=== PATIENT | female | born 1980 | race Caucasian/White ===

== ENCOUNTER 2016-08-27 21:30 | Emergency (ER) | payer SELFPAY ==
--- NOTE | 2016-08-28 | ED ORDER SUMMARY ---
..... Patient: SUBHA DURAN OrderSheet [facility] VisitID: [id number] [address] [place] [address] 36y, F Registration Date/Time: 08/27/2016 ORDER SHEET Weight: 70.3 kg (stated) Allergies: No Known Drug Allergy GENERAL ORDERS: Visual Acuity (23:57 08/27/2016 EKoroleva P.A.-C) (0:13 RCollier R.N.) MEDICATION ORDERS: Benadryl PO 50 mg (NOW) (23:57 08/27/2016 EKoroleva P.A.-C) (Ack 0:04 RCollier R.N.) (0:14 RCollier R.N.) Motrin PO 800 mg (NOW) (23:57 08/27/2016 EKoroleva P.A.-C) (Ack 0:04 RCollier R.N.) (0:14 RCollier R.N.) IV FLUIDS: ORDER SHEET NOTES: [Electronically signed by Carli Vargas P.A.-C (00:33 08/28/2016)] [Electronically signed by Cassie Bangura R.N. (04:48 08/28/2016)] [Electronically locked/signed by Cassie Bangura R.N. (04:48 08/28/2016)]
--- NOTE | 2016-08-28 | ED NURSING NOTES ---
Clinical Report - Nurses [facility] [address] [place] [address] 08/27/2016 21:31 [id number] TRI[facility] Triage time 23:45. Acuity: LEVEL 4. Chief Complaint: REDNESS and PAIN TO RIGHT EYE. REDNESS and PAIN TO LEFT EYE. Alert. No acute distress. --23:48 Cassie Bangura R.N. 23:45 08/27/16. BP: 139/99. HR: 108. RR: 17. O2 saturation: 100%. Temp: 97.6 F (oral). Walker-Gonzalez pain scale: 4/10. --23:48 Cassie Bangura R.N. VISUAL ACUITY: Visual acuity performed: left eye 20/70; right eye 20/70; both eyes 20/70 (pt uncooperative during exam, unwilling to cover eye completely). Patient does not wear corrective lenses. --00:16 Cassie Bangura R.N. Weight: 70.3 kg stated. Height/Length: 66 inches Per Patient. BMI: 25. --23:48 Cassie Bangura R.N. Medications None. --23:45 Cassie Bangura R.N. Allergies No Known Drug Allergy. --23:46 Cassie Bangura R.N. History Arrived by private vehicle. Historian: patient. Primary physician (None). Onset. (about 2 days ago). She did not sustain an injury. PAST MEDICAL HX: Immunizations: up-to-date. Last normal menstrual period was 1 week ago. SOCIAL HX: Heavy tobacco smoker (cigarette)- less than 1 pack per day. No alcohol use or drug use. --23:48 Cassie Bangura R.N. PROBLEMS: Avitia's Palsy. --23:46 Cassie Bangura R.N. ADDITIONAL SURGERIES: Breast reduction. Tonsillectomy. --23:46 Cassie Bangura R.N. Interventions ID band on patient. To treatment room. --23:48 Cassie Bangura R.N. PHYSICAL ASSESSMENT Ambulatory to room. GENERAL / NEURO / PSYCH: Alert. Appears in no acute distress. SKIN: Skin is warm and dry. --23:48 Cassie Bangura R.N. NURSING PROGRESS NOTES Head of bed elevated. Two patient identifiers checked. Call light placed in reach. Side rails up x 1. Bed placed in lowest position. Brakes of bed on. --23:49 Cassie Bangura R.N. Patient ready for evaluation- chart flagged. --23:49 Cassie Bangura R.N. 00:08/28/2016 Benadryl (DiphenhydrAMINE HCl) PO Capsules 50 mg given. Allergies verified, confirmed 5 rights and sedative warning given to the patient. --00:14 Cassie Bangura R.N. 00:08/28/2016 Motrin PO Tablets 800 mg given. Allergies verified and confirmed 5 rights. --00:14 Cassie Bangura R.N. DISPOSITION / DISCHARGE Condition at departure: stable. No learning barriers present. Discharge instructions provided and reviewed with the patient. Reviewed medication(s) side effects, precautions, dosing and course information. Prescription(s) given to the patient. Patient verbalized understanding. Written instructions provided in Frisian. The patient was discharged home and accompanied by tool design engineer. She left the Emergency Department ambulatory and via private vehicle. Draw Bench Operator driving. --00:15 Cassie Bangura R.N. 00:14 08/28/16. BP: deferred. HR: deferred. RR: deferred. O2 saturation: deferred. Temp: deferred. Pain level now deferred. --00:15 Cassie Bangura R.N. Locked/Released at 08/28/2016 4:48 by Cassie Bangura R.N.
--- NOTE | 2016-08-28 | ED NURSING NOTES ---
Clinical Report - Nurses [facility] [address] [place] [address] 08/27/2016 21:31 [id number] Triage time 23:45. Acuity: LEVEL 4. Chief Complaint: REDNESS and PAIN TO RIGHT EYE. REDNESS and PAIN TO LEFT EYE. Alert. No acute distress. --23:48 Cassie Bangura R.N. 23:45 08/27/16. BP: 139/99. HR: 108. RR: 17. O2 saturation: 100%. Temp: 97.6 F (oral). Walker-Gonzalez pain scale: 4/10. --23:48 Cassie Bangura R.N. VISUAL ACUITY: Visual acuity performed: left eye 20/70; right eye 20/70; both eyes 20/70 (pt uncooperative during exam, unwilling to cover eye completely). Patient does not wear corrective lenses. --00:16 Cassie Bangura R.N. Weight: 70.3 kg stated. Height/Length: 66 inches Per Patient. BMI: 25. --23:48 Cassie Bangura R.N. Medications None. --23:45 Cassie Bangura R.N. Allergies No Known Drug Allergy. --23:46 Cassie Bangura R.N. History Arrived by private vehicle. Historian: patient. Primary physician (None). Onset. (about 2 days ago). She did not sustain an injury. PAST MEDICAL HX: Immunizations: up-to-date. Last normal menstrual period was 1 week ago. SOCIAL HX: Heavy tobacco smoker (cigarette)- less than 1 pack per day. No alcohol use or drug use. --23:48 Cassie Bangura R.N. PROBLEMS: Avitia's Palsy. --23:46 Cassie Bangura R.N. ADDITIONAL SURGERIES: Breast reduction. Tonsillectomy. --23:46 Cassie Bangura R.N. Interventions ID band on patient. To treatment room. --23:48 Cassie Bangura R.N. PHYSICAL ASSESSMENT Ambulatory to room. GENERAL / NEURO / PSYCH: Alert. Appears in no acute distress. SKIN: Skin is warm and dry. --23:48 Cassie Bangura R.N. NURSING PROGRESS NOTES Head of bed elevated. Two patient identifiers checked. Call light placed in reach. Side rails up x 1. Bed placed in lowest position. Brakes of bed on. --23:49 Cassie Bangura R.N. Patient ready for evaluation- chart flagged. --23:49 Cassie Bangura R.N. 00:08/28/2016 Benadryl (DiphenhydrAMINE HCl) PO Capsules 50 mg given. Allergies verified, confirmed 5 rights and sedative warning given to the patient. --00:14 Cassie Bangura R.N. 00:08/28/2016 Motrin PO Tablets 800 mg given. Allergies verified and confirmed 5 rights. --00:14 Cassie Bangura R.N. DISPOSITION / DISCHARGE Condition at departure: stable. No learning barriers present. Discharge instructions provided and reviewed with the patient. Reviewed medication(s) side effects, precautions, dosing and course information. Prescription(s) given to the patient. Patient verbalized understanding. Written instructions provided in Vietnamese. The patient was discharged home and accompanied by cupola melter. She left the Emergency Department ambulatory and via private vehicle. Recovery Operator driving. --00:15 Cassie Bangura R.N. 00:14 08/28/16. BP: deferred. HR: deferred. RR: deferred. O2 saturation: deferred. Temp: deferred. Pain level now deferred. --00:15 Cassie Bangura R.N. Locked/Released at 08/28/2016 4:48 by Cassie Bangura R.N.
--- NOTE | 2016-08-28 | ED CLINICAL REPORT ---
Clinical Report - Physicians/Mid Levels [facility] [address] [place] [address] 08/27/2016 21:31 [id number] Time Seen: 9Aug 28 2016. Arrived- By private vehicle. Historian- patient. HISTORY OF PRESENT ILLNESS Chief Complaint: EYE PAIN, REDNESS and IRRITATION. This started 2 - 3 days, involves the right and left eye and is characterized as mild. ( She reports bilateral clear drainage from both eyes, with rhinorrhea and congestion. Denies any vision changes. Denies any history of trauma. Denies any history of sexually transmitted diseases. Denies any foreign body sensation.). REVIEW OF SYSTEMS All systems otherwise negative, except as recorded above. PAST HISTORY No history of prior eye injury. She does not wear contact lenses. Problems: Avitia's Palsy. Additional Surgeries: Breast reduction. Tonsillectomy. Medications: None. Allergies: No Known Drug Allergy. SOCIAL HISTORY Current every day heavy tobacco smoker. No alcohol use or drug use. PHYSICAL EXAM Appearance: Alert. No apparent distress. Does not appear to be anxious. HEENT: Ears normal. Head appears normal to external inspection. Eyes: Eyelids appear normal to inspection. EOMs intact. Periorbital areas appear normal to inspection. Rt Eye: Injected conjunctiva. No conjunctival edema or corneal abrasion. No exudate present. Lt Eye: Injected conjunctiva. No conjunctival edema or corneal abrasion. No exudate present. CVS: Normal heart rate and rhythm. Heart sounds normal. Respiratory: No respiratory distress. Breath sounds normal. PROGRESS AND PROCEDURES Course of Care: VISUAL ACUITY: Visual acuity performed: left eye 20/70; right eye 20/70; both eyes 20/70 (pt uncooperative during exam, unwilling to cover eye completely). Patient does not wear corrective lenses patient does not wear corrective lenses, suspect is a chronic concern. She denies any history of such which has been diseases. Suspect either viral or allergic conjunctivitis. Pt stable. To f/u outpatient. Patient is stable. Patient/family counseled. Differential Diagnosis: I considered viral conjunctivitis, chlamydial conjunctivitis, bacterial conjunctivitis, GC conjunctivitis, allergic conjunctivitis, chemical conjunctivitis, subconjunctival hemorrhage, episcleritis, scleritis, radiation keratitis, contact lens-related keratitis, corneal abrasion, uveitis, iritis, posterior uveitis, herpes zoster and periorbital cellulitis as a possible cause of red/painful eye in this patient. This is a partial list of diagnoses considered. Disposition: Discharged. Condition: good. CLINICAL IMPRESSION Acute viral conjunctivitis of the right eye and left eye. INSTRUCTIONS ([facility]: Address: [address] [place] [address] ). Prescription Medications: Ibuprofen 800 mg tablets: take 1 tablet orally every 8 hours for 5 days, as needed for pain. Dispense fifteen (15). No refill. OTC Medications: Claritin D-24 hr (available over the counter): take 1 tablet orally at bedtime for 10 days, as needed for allergies or itching. Dispense ten (10). No refill. Substitution is permissible. Follow-up: Follow up with your doctor. (Electronically signed by Carli Vargas P.A.-C 08/28/2016 0:33)
--- NOTE | 2016-08-28 | ED ORDER SUMMARY ---
..... Patient: SUBHA DURAN OrderSheet [facility] VisitID: [id number] [address] [place] [address] 36y, F Registration Date/Time: 08/27/2016 ORDER SHEET Weight: 70.3 kg (stated) Allergies: No Known Drug Allergy GENERAL ORDERS: Visual Acuity (23:57 08/27/2016 EKoroleva P.A.-C) (0:13 RCollier R.N.) MEDICATION ORDERS: Benadryl PO 50 mg (NOW) (23:57 08/27/2016 EKoroleva P.A.-C) (Ack 0:04 RCollier R.N.) (0:14 RCollier R.N.) Motrin PO 800 mg (NOW) (23:57 08/27/2016 EKoroleva P.A.-C) (Ack 0:04 RCollier R.N.) (0:14 RCollier R.N.) IV FLUIDS: ORDER SHEET NOTES: [Electronically signed by Carli Vargas P.A.-C (00:33 08/28/2016)] [Electronically signed by Cassie Bangura R.N. (04:48 08/28/2016)] [Electronically locked/signed by Cassie Bangura R.N. (04:48 08/28/2016)]
--- NOTE | 2016-08-28 | ED CLINICAL REPORT ---
Clinical Report - Physicians/Mid Levels [facility] [address] [place] [address] 08/27/2016 21:31 [id number] Time Seen: 9Aug 28 2016. Arrived- By private vehicle. Historian- patient. HISTORY OF PRESENT ILLNESS Chief Complaint: EYE PAIN, REDNESS and IRRITATION. This started 2 - 3 days, involves the right and left eye and is characterized as mild. ( She reports bilateral clear drainage from both eyes, with rhinorrhea and congestion. Denies any vision changes. Denies any history of trauma. Denies any history of sexually transmitted diseases. Denies any foreign body sensation.). REVIEW OF SYSTEMS All systems otherwise negative, except as recorded above. PAST HISTORY No history of prior eye injury. She does not wear contact lenses. Problems: Avitia's Palsy. Additional Surgeries: Breast reduction. Tonsillectomy. Medications: None. Allergies: No Known Drug Allergy. SOCIAL HISTORY Current every day heavy tobacco smoker. No alcohol use or drug use. PHYSICAL EXAM Appearance: Alert. No apparent distress. Does not appear to be anxious. HEENT: Ears normal. Head appears normal to external inspection. Eyes: Eyelids appear normal to inspection. EOMs intact. Periorbital areas appear normal to inspection. Rt Eye: Injected conjunctiva. No conjunctival edema or corneal abrasion. No exudate present. Lt Eye: Injected conjunctiva. No conjunctival edema or corneal abrasion. No exudate present. CVS: Normal heart rate and rhythm. Heart sounds normal. Respiratory: No respiratory distress. Breath sounds normal. PROGRESS AND PROCEDURES Course of Care: VISUAL ACUITY: Visual acuity performed: left eye 20/70; right eye 20/70; both eyes 20/70 (pt uncooperative during exam, unwilling to cover eye completely). Patient does not wear corrective lenses patient does not wear corrective lenses, suspect is a chronic concern. She denies any history of such which has been diseases. Suspect either viral or allergic conjunctivitis. Pt stable. To f/u outpatient. Patient is stable. Patient/family counseled. Differential Diagnosis: I considered viral conjunctivitis, chlamydial conjunctivitis, bacterial conjunctivitis, GC conjunctivitis, allergic conjunctivitis, chemical conjunctivitis, subconjunctival hemorrhage, episcleritis, scleritis, radiation keratitis, contact lens-related keratitis, corneal abrasion, uveitis, iritis, posterior uveitis, herpes zoster and periorbital cellulitis as a possible cause of red/painful eye in this patient. This is a partial list of diagnoses considered. Disposition: Discharged. Condition: good. CLINICAL IMPRESSION Acute viral conjunctivitis of the right eye and left eye. INSTRUCTIONS ([facility]: Address: [address] [place] [address] ). Prescription Medications: Ibuprofen 800 mg tablets: take 1 tablet orally every 8 hours for 5 days, as needed for pain. Dispense fifteen (15). No refill. OTC Medications: Claritin D-24 hr (available over the counter): take 1 tablet orally at bedtime for 10 days, as needed for allergies or itching. Dispense ten (10). No refill. Substitution is permissible. Follow-up: Follow up with your doctor. (Electronically signed by Carli Vargas P.A.-C 08/28/2016 0:33)
--- NOTE | 2016-08-28 04:48 | ED MED RECONCILIATION SUMMARY ---
Patient: SUBHA DURAN Medication Reconciliation Report [facility] VisitID: [id number] [place] [address] 36y, F Registration Date/Time: 08/27/2016 Weight: 70.3 kg Height/Length: 66 in. BMI: 25.0 ALLERGIES: No Known Drug Allergy The patient's Home Medications are listed below: NONE. The source(s) of the original Home Medication information: Not obtained. The following Medications were given to the patient in the Emergency Department: Benadryl [PO] PO 50 mg, administered: 08/28/2016 12:09:00 AM Motrin [PO] PO 800 mg, administered: 08/28/2016 12:09:00 AM The following Medications were prescribed to the patient: Ibuprofen 800 mg tablets: take 1 tablet orally every 8 hours for 5 days, as needed for pain. Dispense fifteen (15). No refill. -- Carli Vargas P.AReena Claritin D-24 hr (available over the counter): take 1 tablet orally at bedtime for 10 days, as needed for allergies or itching. Dispense ten (10). No refill. Substitution is permissible. -- Carli Vargas, P.AReena
--- NOTE | 2016-08-28 04:48 | ED DISCHARGE INSTRUCTIONS ---
Patient: SUBHA DURAN General Instructions [facility] VisitID: [id number] [place] [address] 36y, F Registration Date/Time: 08/27/2016 Acute viral conjunctivitis of the right eye and left eye. INSTRUCTIONS ([facility]: Address: [address] [place] [address] ). Prescription Medications: Ibuprofen 800 mg tablets: take 1 tablet orally every 8 hours for 5 days, as needed for pain. Dispense fifteen (15). No refill. OTC Medications: Claritin D-24 hr (available over the counter): take 1 tablet orally at bedtime for 10 days, as needed for allergies or itching. Dispense ten (10). No refill. Substitution is permissible. Follow-up: Follow up with your doctor. ADDITIONAL INFORMATION Conjunctivitis, Allergic Allergic Conjunctivitis is a reaction to dust or pollen in the air. This causes itching and redness in the membranes of the eyelids. There may be swelling of the lids, redness, and a gritty or scratchy feeling in the eye. Home Care: Eye drops may be prescribed to reduce itching and redness. Use these as directed. Otherwise, Visine, Vasocon or other fgqk-fnr-xitopiz decongestant eye drops may be used. Apply a cool compress (towel soaked in cool water) to the affected eye 3-4 times a day to reduce swelling and itching. It is common to have mucus drainage during the night causing the eyelids to become crusted by morning. Use a warm wet cloth to wipe this away. You may also use saline irrigating solution or artificial tears to rinse away mucus inside the eye. Do not patch the eye. You may use acetaminophen (Tylenol) or ibuprofen (Motrin, Advil) to control pain, unless another medicine was prescribed. [ NOTE: If you have chronic liver or kidney disease or ever had a stomach ulcer or GI bleeding, talk with your doctor before using these medicines.] Do not wear contact lenses until your eyes have healed and all symptoms are gone. Follow Up with your doctor or this facility as directed, or if there has not been improvement within five days. Get Prompt Medical Attention if any of the following occur: Increased swelling of the eyelid New or worsening drainage from the eye Increasing redness around the eye Facial swelling Conjunctivitis, Non-Specific The membrane that covers your eye is inflamed. Any itching, burning or irritation should go away within the next 24 hours. Conjunctivitis may be related to a particle that was in your eye. If so, it was washed out with your tears or irrigation treatment. Being exposed to liquid chemicals or fumes may also cause this reaction. Your condition does not appear to be due to an eye infection. Home Care: Apply a cold pack (ice in a plastic bag, wrapped in a towel) over the eye for 20 minutes at a time. This will reduce pain. Eye drops may be prescribed to reduce irritation or redness. Otherwise, Visine or similar lugb-dyh-zevrgsi decongestant eye drops may be used. You may use acetaminophen (Tylenol) or ibuprofen (Motrin, Advil) to control pain, unless another medicine was prescribed. [ NOTE: If you have chronic liver or kidney disease or ever had a stomach ulcer or GI bleeding, talk with your doctor before using these medicines.] Follow Up with your doctor or this facility as directed, or if your symptoms have not improved after 24 hours. Get Prompt Medical Attention if any of the following occur: Increased eyelid swelling Increase in eye pain Increased redness or drainage from the eye Failure of normal vision to return within 24-48 hours. Conjunctivitis, Viral Viral Conjunctivitis (sometimes calledPink Eye) is a common infection of the eye. This infection is very contagious. Touching the infected eye then touching another person passes this infection. It can also be spread it from one eye to the other in this same way. The most common symptoms include redness, discharge from the eye, swollen eyelids, and a gritty or scratchy feeling in the eye. This condition will take about 7-10 days to go away. Antibiotic eye drops will not kill the virus but may be prescribed to prevent a secondary bacterial infection. Home Care: Apply a towel soaked in warm water to the affected eye 3-4 times a day (just before applying medicine to the eye). It is common to have mucus drainage during the night, causing the eyelids to become crusted by morning. Use a warm wet cloth to wipe this away. Be sure antibiotics are taken as directed until all the medicine is gone. You may use acetaminophen (Tylenol) or ibuprofen (Motrin, Advil) to control pain, unless another medicine was prescribed. In infants over six months of age, you may use ibuprofen (Children's Motrin) instead of Tylenol. [NOTE : If the patient has chronic liver or kidney disease or ever had a stomach ulcer or GI bleeding, talk with your doctor before using these medicines.] (Aspirin should never be used in anyone under 18 years of age who is ill with a fever. It may cause severe liver damage.) Wash your hands before and after touching the affected eye to prevent spreading the infection to your other eye and to others. The infected person should avoid sharing towels, washcloths and pillows with others since this may spread the infection. This illness is contagious during the first week, and children with this illness should be kept out of day care and school until the redness clears. Follow Up with your doctor or this facility as directed, or if there has not been improvement within five days. Get Prompt Medical Attention if any of the following occur: Worsening vision Increasing pain in the eye Increasing swelling or redness of the eyelid Redness spreading to the face around the eye Large amount of green or yellow drainage from the eye Severe itching in or around the eye Fever over 100.0F (37.8C) oral, or over 101.0F (38.3C) rectal Loratadine Oral tablet, extended release 24 hour What is this medicine? LORATADINE (waylon AT a darryl) is an antihistamine. It helps to relieve sneezing, runny nose, and itchy, watery eyes. This medicine is used to treat the symptoms of allergies. It is also used to treat itchy skin rash and hives. How should I use this medicine? Take this medicine by mouth with a glass of water. Follow the directions on the label. You may take this medicine with food or on an empty stomach. Take your medicine at regular intervals. Do not take your medicine more often than directed. Talk to your bean roaster regarding the use of this medicine in children. While this medicine may be used in children as young as 6 years for selected conditions, precautions do apply. What side effects may I notice from receiving this medicine? Side effects that you should report to your doctor or health regular senior care provider as soon as possible: allergic reactions like skin rash, itching or hives, swelling of the face, lips, or tongue breathing problems unusually restless or nervous Side effects that usually do not require medical attention (report to your doctor or health regular senior care provider if they continue or are bothersome): drowsiness dry or irritated mouth or throat headache What may interact with this medicine? other medicines for colds or allergies What if I miss a dose? If you miss a dose, take it as soon as you can. If it is almost time for your next dose, take only that dose. Do not take double or extra doses. Where should I keep my medicine? Keep out of the reach of children. Store at room temperature between 2 and 30 degrees C (36 and 86 degrees F). Protect from moisture. Throw away any unused medicine after the expiration date. What should I tell my health care provider before I take this medicine? They need to know if you have any of these conditions: asthma kidney disease liver disease an unusual or allergic reaction to loratadine, other antihistamines, other medicines, foods, dyes, or preservatives or trying to get breast-feeding What should I watch for while using this medicine? Tell your doctor or healthcare professional if your symptoms do not start to get better or if they get worse. Your mouth may get dry. Chewing sugarless gum or sucking hard candy, and drinking plenty of water may help. Contact your doctor if the problem does not go away or is severe. You may get drowsy or dizzy. Do not drive, use machinery, or do anything that needs mental alertness until you know how this medicine affects you. Do not stand or sit up quickly, especially if you are an older patient. This reduces the risk of dizzy or fainting spells. You have been given the following additional information: Conjunctivitis, Allergic Conjunctivitis, Non-Specific Conjunctivitis, Viral Loratadine Oral tablet, extended release 24 hour (Electronically signed by Carli Vargas P.A.-C 08/28/2016 0:33)
--- NOTE | 2016-08-28 04:48 | ED DISCHARGE INSTRUCTIONS ---
Patient: SUBHA DURAN General Instructions [facility] VisitID: [id number] [place] [address] 36y, F Registration Date/Time: 08/27/2016 Acute viral conjunctivitis of the right eye and left eye. INSTRUCTIONS ([facility]: Address: [address] [place] [address] ). Prescription Medications: Ibuprofen 800 mg tablets: take 1 tablet orally every 8 hours for 5 days, as needed for pain. Dispense fifteen (15). No refill. OTC Medications: Claritin D-24 hr (available over the counter): take 1 tablet orally at bedtime for 10 days, as needed for allergies or itching. Dispense ten (10). No refill. Substitution is permissible. Follow-up: Follow up with your doctor. ADDITIONAL INFORMATION Conjunctivitis, Allergic Allergic Conjunctivitis is a reaction to dust or pollen in the air. This causes itching and redness in the membranes of the eyelids. There may be swelling of the lids, redness, and a gritty or scratchy feeling in the eye. Home Care: Eye drops may be prescribed to reduce itching and redness. Use these as directed. Otherwise, Visine, Vasocon or other voni-fre-jgzrgce decongestant eye drops may be used. Apply a cool compress (towel soaked in cool water) to the affected eye 3-4 times a day to reduce swelling and itching. It is common to have mucus drainage during the night causing the eyelids to become crusted by morning. Use a warm wet cloth to wipe this away. You may also use saline irrigating solution or artificial tears to rinse away mucus inside the eye. Do not patch the eye. You may use acetaminophen (Tylenol) or ibuprofen (Motrin, Advil) to control pain, unless another medicine was prescribed. [ NOTE: If you have chronic liver or kidney disease or ever had a stomach ulcer or GI bleeding, talk with your doctor before using these medicines.] Do not wear contact lenses until your eyes have healed and all symptoms are gone. Follow Up with your doctor or this facility as directed, or if there has not been improvement within five days. Get Prompt Medical Attention if any of the following occur: Increased swelling of the eyelid New or worsening drainage from the eye Increasing redness around the eye Facial swelling Conjunctivitis, Non-Specific The membrane that covers your eye is inflamed. Any itching, burning or irritation should go away within the next 24 hours. Conjunctivitis may be related to a particle that was in your eye. If so, it was washed out with your tears or irrigation treatment. Being exposed to liquid chemicals or fumes may also cause this reaction. Your condition does not appear to be due to an eye infection. Home Care: Apply a cold pack (ice in a plastic bag, wrapped in a towel) over the eye for 20 minutes at a time. This will reduce pain. Eye drops may be prescribed to reduce irritation or redness. Otherwise, Visine or similar gxvy-ibd-qryxjot decongestant eye drops may be used. You may use acetaminophen (Tylenol) or ibuprofen (Motrin, Advil) to control pain, unless another medicine was prescribed. [ NOTE: If you have chronic liver or kidney disease or ever had a stomach ulcer or GI bleeding, talk with your doctor before using these medicines.] Follow Up with your doctor or this facility as directed, or if your symptoms have not improved after 24 hours. Get Prompt Medical Attention if any of the following occur: Increased eyelid swelling Increase in eye pain Increased redness or drainage from the eye Failure of normal vision to return within 24-48 hours. Conjunctivitis, Viral Viral Conjunctivitis (sometimes calledPink Eye) is a common infection of the eye. This infection is very contagious. Touching the infected eye then touching another person passes this infection. It can also be spread it from one eye to the other in this same way. The most common symptoms include redness, discharge from the eye, swollen eyelids, and a gritty or scratchy feeling in the eye. This condition will take about 7-10 days to go away. Antibiotic eye drops will not kill the virus but may be prescribed to prevent a secondary bacterial infection. Home Care: Apply a towel soaked in warm water to the affected eye 3-4 times a day (just before applying medicine to the eye). It is common to have mucus drainage during the night, causing the eyelids to become crusted by morning. Use a warm wet cloth to wipe this away. Be sure antibiotics are taken as directed until all the medicine is gone. You may use acetaminophen (Tylenol) or ibuprofen (Motrin, Advil) to control pain, unless another medicine was prescribed. In infants over six months of age, you may use ibuprofen (Children's Motrin) instead of Tylenol. [NOTE : If the patient has chronic liver or kidney disease or ever had a stomach ulcer or GI bleeding, talk with your doctor before using these medicines.] (Aspirin should never be used in anyone under 18 years of age who is ill with a fever. It may cause severe liver damage.) Wash your hands before and after touching the affected eye to prevent spreading the infection to your other eye and to others. The infected person should avoid sharing towels, washcloths and pillows with others since this may spread the infection. This illness is contagious during the first week, and children with this illness should be kept out of day care and school until the redness clears. Follow Up with your doctor or this facility as directed, or if there has not been improvement within five days. Get Prompt Medical Attention if any of the following occur: Worsening vision Increasing pain in the eye Increasing swelling or redness of the eyelid Redness spreading to the face around the eye Large amount of green or yellow drainage from the eye Severe itching in or around the eye Fever over 100.0F (37.8C) oral, or over 101.0F (38.3C) rectal Loratadine Oral tablet, extended release 24 hour What is this medicine? LORATADINE (waylon AT a darryl) is an antihistamine. It helps to relieve sneezing, runny nose, and itchy, watery eyes. This medicine is used to treat the symptoms of allergies. It is also used to treat itchy skin rash and hives. How should I use this medicine? Take this medicine by mouth with a glass of water. Follow the directions on the label. You may take this medicine with food or on an empty stomach. Take your medicine at regular intervals. Do not take your medicine more often than directed. Talk to your clinical radiologist regarding the use of this medicine in children. While this medicine may be used in children as young as 6 years for selected conditions, precautions do apply. What side effects may I notice from receiving this medicine? Side effects that you should report to your doctor or health rn coronary care unit as soon as possible: allergic reactions like skin rash, itching or hives, swelling of the face, lips, or tongue breathing problems unusually restless or nervous Side effects that usually do not require medical attention (report to your doctor or health rn coronary care unit if they continue or are bothersome): drowsiness dry or irritated mouth or throat headache What may interact with this medicine? other medicines for colds or allergies What if I miss a dose? If you miss a dose, take it as soon as you can. If it is almost time for your next dose, take only that dose. Do not take double or extra doses. Where should I keep my medicine? Keep out of the reach of children. Store at room temperature between 2 and 30 degrees C (36 and 86 degrees F). Protect from moisture. Throw away any unused medicine after the expiration date. What should I tell my health care provider before I take this medicine? They need to know if you have any of these conditions: asthma kidney disease liver disease an unusual or allergic reaction to loratadine, other antihistamines, other medicines, foods, dyes, or preservatives or trying to get breast-feeding What should I watch for while using this medicine? Tell your doctor or healthcare professional if your symptoms do not start to get better or if they get worse. Your mouth may get dry. Chewing sugarless gum or sucking hard candy, and drinking plenty of water may help. Contact your doctor if the problem does not go away or is severe. You may get drowsy or dizzy. Do not drive, use machinery, or do anything that needs mental alertness until you know how this medicine affects you. Do not stand or sit up quickly, especially if you are an older patient. This reduces the risk of dizzy or fainting spells. You have been given the following additional information: Conjunctivitis, Allergic Conjunctivitis, Non-Specific Conjunctivitis, Viral Loratadine Oral tablet, extended release 24 hour (Electronically signed by Carli Vargas P.A.-C 08/28/2016 0:33)
--- NOTE | 2016-08-28 04:48 | ED MAR SUMMARY ---
..... Medication Administration Record [facility] [address] [place] [address] Patient: SUBHA DURAN Visit ID: [id number] 36y, F Weight: 70.3 kg Height/Length: 66 in BMI: 25 ALLERGIES: No Known Drug Allergy Given 00:08/28/2016 Cassie Bangura, R.N. Medication Administered: BENADRYL [PO] (DIPHENHYDRAMINE HCL), Dose: 50 mg Capsules PO. Medication Ordered: Benadryl PO 50 mg (NOW). Given 00:08/28/2016 Cassie Bangura, R.N. Medication Administered: MOTRIN [PO], Dose: 800 mg Tablets PO. Medication Ordered: Motrin PO 800 mg (NOW).
--- NOTE | 2016-08-28 04:48 | ED MED RECONCILIATION SUMMARY ---
Patient: SUBHA DURAN Medication Reconciliation Report [facility] VisitID: [id number] [place] [address] 36y, F Registration Date/Time: 08/27/2016 Weight: 70.3 kg Height/Length: 66 in. BMI: 25.0 ALLERGIES: No Known Drug Allergy The patient's Home Medications are listed below: NONE. The source(s) of the original Home Medication information: Not obtained. The following Medications were given to the patient in the Emergency Department: Benadryl [PO] PO 50 mg, administered: 08/28/2016 12:09:00 AM Motrin [PO] PO 800 mg, administered: 08/28/2016 12:09:00 AM The following Medications were prescribed to the patient: Ibuprofen 800 mg tablets: take 1 tablet orally every 8 hours for 5 days, as needed for pain. Dispense fifteen (15). No refill. -- Carli Vargas P.AReena Claritin D-24 hr (available over the counter): take 1 tablet orally at bedtime for 10 days, as needed for allergies or itching. Dispense ten (10). No refill. Substitution is permissible. -- Carli Vargas, P.AReena
--- NOTE | 2016-08-28 04:48 | ED MAR SUMMARY ---
..... Medication Administration Record [facility] [address] [place] [address] Patient: SUBHA DURAN Visit ID: [id number] 36y, F Weight: 70.3 kg Height/Length: 66 in BMI: 25 ALLERGIES: No Known Drug Allergy Given 00:08/28/2016 Cassie Bangura, R.N. Medication Administered: BENADRYL [PO] (DIPHENHYDRAMINE HCL), Dose: 50 mg Capsules PO. Medication Ordered: Benadryl PO 50 mg (NOW). Given 00:08/28/2016 Cassie Bangura, R.N. Medication Administered: MOTRIN [PO], Dose: 800 mg Tablets PO. Medication Ordered: Motrin PO 800 mg (NOW).
== END 2016-08-28 00:10 | disposition home or self-care (01) ==
LOC: ED SRH 21:30
DX: B30.9 Viral conjunctivitis, unspecified (principal); F17.219 Nicotine dependence, cigarettes, with unspecified nicotine-induced disorders